=== PATIENT | female | born 1955 | race Caucasian/White ===

== ENCOUNTER 2017-02-11 13:39 | Day surgery (SDC) | payer OTHER ==
[2017-02-07 16:39] VITALS: BMI 29.2
[~2017-02-11 13:39] MED LIST: BETAMET ACET/BETAMET NA PH 30 MG/5 ML VIAL IJ ONE; BUPIVACAINE HCL/PF 0.25% (2.5MG/ML) 10 ML VIAL IJ ONE; BUPIVACAINE HCL/PF 0.5% (5MG/ML) 10 ML VIAL IJ ONE; IOHEXOL 180 MG/1 ML ML IJ ONE; LIDOCAINE HCL 1%, 10 MG/ML (50 mL VIAL) IJ ONE
[2017-02-11 14:27] VITALS: TEMP 98.5
[2017-02-11] MEDS ORDERED: LIDOCAINE HCL 1%, 10 MG/ML (20ML VIAL) ONE (15:30)
[2017-02-11] MEDS ORDERED: PROPOFOL 20 ML ONE (15:35)
[2017-02-11 17:31] VITALS: BP 120/64; PULSE 77
--- NOTE | 2017-02-26 13:36 | OP ---
DATE OF OPERATION: 02/11/2017 PREOPERATIVE DIAGNOSIS: Low back pain with lumbar radiculopathy on the left side. POSTOPERATIVE DIAGNOSIS: Low back pain with lumbar radiculopathy on the left side. PROCEDURE: Posterior lumbar epidural steroid injection at the L4-L5 on the left side, interlaminar approach. ANESTHESIA: Local and MAC. ANESTHESIOLOGIST: DESCRIPTION OF PROCEDURE: I discussed with her about risks, benefits, and alternative treatments. Patient understood, agreed, and signed the written consent. The patient was placed in the prone position. Head, neck, abdomen supported with the pillows. Lumbosacral area was prepped and draped with Betadine x3 and alcohol x3. Under fluoroscopy, vertebra was identified. At the L4-L5 level on the left side, 3 mL of 1% lidocaine was infiltrated. A 20-gauge 3-1/2-inch Tuohy needle was used to approach the epidural space with [id number] technique on intermittent fluoroscopy AP and oblique view. After negative aspiration, 2 mL of Omnipaque 180 was injected to see the flow of dye into epidural space. There was no CSF uptake or venous uptake. A solution containing 2.5 mL Celestone mixed with 1.5 mL of 0.25% Marcaine preservative free total of 4 mL was injected at this level after negative aspiration. While the needle was withdrawn, 1 mL of 1% lidocaine was infiltrated. The patient tolerated the procedure well. There was no immediate complication. Betadine was wiped off. A sterile bandage was placed. The patient was transferred to the recovery room and discharged as per ASU criteria. The patient was told to apply ice. If any problem, call me or report to ER. A follow up appointment was given. OSEI HANKS M.D. [id number]
== END 2017-02-11 17:35 | disposition home or self-care (01) ==
LOC: JOR 13:39 → JASU-SURG 13:39
PROVIDERS: ATTEND Physical Medicine & Rehabilitation
PROC: 3E0S33Z Introduction of Anti-inflammatory into Epidural Space, Percutaneous Approach (ICD-10-PCS; 2017-02-11)
PROC: B01BZZZ Fluoroscopy of Spinal Cord (ICD-10-PCS; 2017-02-11)
PROC: 3E0S3BZ Introduction of Anesthetic Agent into Epidural Space, Percutaneous Approach (ICD-10-PCS; principal; 2017-02-11 15:00)
DX: M54.16 Radiculopathy, lumbar region (principal)
CPT/HCPCS: 76000-TC

== ENCOUNTER 2018-02-13 07:45 | Emergency (ER) | payer OTHER ==
[2018-02-13 07:53] VITALS: BP 124/93; PULSE 107; TEMP 98.6; BMI 34.7
[2018-02-13] MEDS ORDERED: LORATADINE 10 MG TABLET ONE (08:43)
[2018-02-13] MEDS ORDERED: predniSONE 20 MG TABLET (UD) ONE (08:43)
[2018-02-13] MEDS ORDERED: LORATADINE 10 MG TABLET PO ONE (09:11)
[2018-02-13] MEDS ORDERED: predniSONE 20 MG TABLET (UD) PO ONE (09:11)
--- NOTE | 2018-02-13 09:16 | PDOC ---
History of Present Illness - General Chief Complaint: Allergic Reaction Stated Complaint: ALLERGIC REACTION Time Seen by Provider: 02/13/18 09:11 History Source: Patient - History of Present Illness Timing/Duration: reports: this morning Severity: Yes: moderate Location: reports: extremities Past History - Past Medical History Allergies/Adverse Reactions: Allergies Allergy/AdvReac Type Severity Reaction Status Date / Time No Known Allergies Allergy Verified 02/13/18 07:47 Home Medications: Ambulatory Orders Metformin HCl [Glucophage] 1,000 mg PO BID 09/30/11 Aspirin Coated [Ecotrin -] 81 mg PO DAILY 02/07/17 Atorvastatin Ca [Lipitor] 40 mg PO HS 02/07/17 Cyclobenzaprine HCl [Flexeril 10 mg] 10 mg PO HS 02/07/17 Furosemide [Lasix] 40 mg PO UTDICT 02/07/17 Gabapentin 300 mg PO HS 02/07/17 Insulin (Levemir) [Levemir Flexpen -] 28 units SQ BID 02/07/17 Insulin Lispro [Humalog] 100 unit SQ ACHS 02/07/17 Losartan Potassium 25 mg PO DAILY 02/07/17 Metoprolol Tartrate 75 mg PO BID 02/07/17 Oxycodone HCl/Acetaminophen [Percocet 5-325 mg Tablet] 1 tab PO PRN PRN Potassium Chloride [Klor-Con 10] 10 meq PO UTDICT 02/07/17 EPINEPHrine (EPI-PEN 0.3MG) [Epipen 0.3MG -] 0.3 mg IM ASDIR #1 pens 02/13/18 Famotidine [Pepcid] 20 mg PO DAILY #7 tablet 02/13/18 predniSONE [Deltasone -] 40 mg PO DAILY #8 tablet 02/13/18 Anemia: No Asthma: No Cancer: Yes (s/p bilateral breast cancer) Cardiac Disorders: Yes (BYPASS SX 2014) CVA: No COPD: No CHF: No DVT: No Dementia: No Diabetes: Yes (2008) GI Disorders: No Disorders: No HTN: No Hypercholesterolemia: Yes Liver Disease: No Seizures: No Thyroid Disease: No Other medical history: back problems - Surgical History Abdominal Surgery: Yes Appendectomy: No Cardiac Surgery: Yes (BYPASS 2014) Cholecystectomy: No Lung Surgery: No Neurologic Surgery: No Orthopedic Surgery: Yes (LT KNEE REPLACEMENT-ARTHROSCOPIC SX FOR SCAR TISSUE) - Suicide/Smoking/Psychosocial Hx Smoking History: Former smoker Have you smoked in the past 12 months: No Number of Cigarettes Smoked Daily: 4 If you are a former smoker, when did you quit?: 2014 Information on smoking cessation initiated: No Hx Alcohol Use: No Drug/Substance Use Hx: No Substance Use Type: None Hx Substance Use Treatment: No Review of Systems - Review of Systems Constitutional: No: Chills, Fever HEENTM: No: Throat Pain, Throat Swelling Respiratory: No: Shortness of Breath, Stridor Integumentary: Yes: Pruritus, Rash *Physical Exam - Vital Signs Last Vital Signs Temp Pulse Resp BP Pulse Ox 98.6 F 107 H 20 124/93 100 02/13/18 07:49 02/13/18 07:49 02/13/18 07:49 02/13/18 07:49 02/13/18 07:49 - Physical Exam General Appearance: Yes: Appropriately Dressed, Mild Distress HEENT: positive: Normal Voice, Pharynx Normal. negative: Muffled/Hoarse voice Neck: positive: Supple. negative: Stridor Respiratory/Chest: positive: Lungs Clear, Normal Breath Sounds. negative: Respiratory Distress Cardiovascular: positive: Regular Rate, S1, S2 Integumentary: positive: Dry, Warm, Rash (hives to neck, trunk and lower extremities) Neurologic: positive: Fully Oriented, Alert, Normal Mood/Affect Medical Decision Making - Medical Decision Making 02/13/18 09:13 62-year-old female, history of insulin-dependent diabetic, CABG, status post recent back surgery here with sudden onset generalized itching that started about 3 AM today. Patient states she also noticed rash to neck, trunk and lower extremities. Patient denies any inciting factors and no known drug or food allergies. No recent travel or sick contacts. Patient states she took 25 mg Benadryl this a.m. with no improvement. No sob, tongue swelling or voice changes. No history of similar episode. No history of liver disease See exam Hives Wyatt very uncomfortable in ED w/ scant hives throughout body -IM benadryl -prednisone -reassess 02/13/18 09:56 Pt reports mild improvement in symptoms. Offered further observation in ED but states she would rather go home at this time. Lungs remain clear w/ no angioedema. Rpt HR 86. Strict return precaution given *DC/Admit/Observation/Transfer Diagnosis at time of Disposition: Hives - Discharge Dispostion Disposition: HOME Condition at time of disposition: Improved - Prescriptions Prescriptions: EPINEPHrine (EPI-PEN 0.3MG) [Epipen 0.3MG -] 0.3 mg IM ASDIR #1 pens Famotidine [Pepcid] 20 mg PO DAILY #7 tablet predniSONE [Deltasone -] 40 mg PO DAILY #8 tablet - Referrals Referrals: Makenna Rogers MD [Primary Care Provider] - - Patient Instructions Printed Discharge Instructions: DI for General Allergic Reactions Additional Instructions: Take medications as directed and return for worsening of symptoms - Post Discharge Activity
== END 2018-02-13 10:05 | disposition home or self-care (01) ==
LOC: JERFT 07:45
PROC: 3E023GC Introduction of Other Therapeutic Substance into Muscle, Percutaneous Approach (ICD-10-PCS; principal; 2018-02-13)
DX: L50.9 Urticaria, unspecified (principal); E11.9 Type 2 diabetes mellitus without complications; Z95.1 Presence of aortocoronary bypass graft; Z79.4 Long term (current) use of insulin
CPT/HCPCS: 99281-25

== ENCOUNTER 2018-02-13 20:37 | Emergency (ER) | payer OTHER ==
[2018-02-13 20:45] VITALS: BMI 34.7
[2018-02-13] MEDS ORDERED: methylPREDNISolone NA SUCC 40 MG/1 ML VIAL IVPUSH ONE (21:31)
[2018-02-13] MEDS ORDERED: FAMOTIDINE 20 MG/50 ML IVPB 20 MG/50 ML MG IVPB ONE ×2 (21:31→21:47)
--- NOTE | 2018-02-13 21:32 | PDOC ---
History of Present Illness - General Chief Complaint: Allergic Reaction Stated Complaint: RASH Time Seen by Provider: 02/13/18 21:13 History Source: Patient, Old Records Exam Limitations: No Limitations - History of Present Illness Initial Comments: 02/13/18 22:11 This 62-year-old woman with past medical history of insulin-dependent diabetes, CABG, multiple orthopedic surgeries including back surgery 3 weeks ago presents with generalized rash to her neck, trunk and lower extremities. Patient denies any change in soaps, shampoos, fabric softeners, shampoos, conditioners, foods or medications. Patient was seen and evaluated here in this emergency department earlier today received IM Benadryl and prednisone with improvement in symptoms. Patient states she would rather go home as opposed observation at that time. Patient states that approximately 1:00 this afternoon her symptoms resolved for which she took more Benadryl and Pepcid at that time. Patient states minimal relief of symptoms after repeat dosing. Patient contacted her primary doctor who recommended she come to the emergency department for IV steroids. Past History - Past Medical History Allergies/Adverse Reactions: Allergies Allergy/AdvReac Type Severity Reaction Status Date / Time No Known Allergies Allergy Verified 02/13/18 07:47 Home Medications: Ambulatory Orders Metformin HCl [Glucophage] 1,000 mg PO BID 09/30/11 Aspirin Coated [Ecotrin -] 81 mg PO DAILY 02/07/17 Atorvastatin Ca [Lipitor] 40 mg PO HS 02/07/17 Cyclobenzaprine HCl [Flexeril 10 mg] 10 mg PO HS 02/07/17 Furosemide [Lasix] 40 mg PO UTDICT 02/07/17 Gabapentin 300 mg PO HS 02/07/17 Insulin (Levemir) [Levemir Flexpen -] 28 units SQ BID 02/07/17 Insulin Lispro [Humalog] 100 unit SQ ACHS 02/07/17 Losartan Potassium 25 mg PO DAILY 02/07/17 Metoprolol Tartrate 75 mg PO BID 02/07/17 Oxycodone HCl/Acetaminophen [Percocet 5-325 mg Tablet] 1 tab PO PRN PRN Potassium Chloride [Klor-Con 10] 10 meq PO UTDICT 02/07/17 EPINEPHrine (EPI-PEN 0.3MG) [Epipen 0.3MG -] 0.3 mg IM ASDIR #1 pens 02/13/18 Famotidine [Pepcid] 20 mg PO DAILY #7 tablet 02/13/18 predniSONE [Deltasone -] 40 mg PO DAILY #8 tablet 02/13/18 hydrOXYzine HCL [Atarax -] 25 mg PO QID #60 tablet 02/14/18 Anemia: No Asthma: No Cancer: Yes (s/p bilateral breast cancer) Cardiac Disorders: Yes (BYPASS SX 2014) CVA: No COPD: No CHF: No DVT: No Dementia: No Diabetes: Yes (2008) GI Disorders: No Disorders: No HTN: No Hypercholesterolemia: Yes Liver Disease: No Seizures: No Thyroid Disease: No - Surgical History Abdominal Surgery: Yes Appendectomy: No Cardiac Surgery: Yes (BYPASS 2014) Cholecystectomy: No Lung Surgery: No Neurologic Surgery: No Orthopedic Surgery: Yes (LT KNEE REPLACEMENT-ARTHROSCOPIC SX FOR SCAR TISSUE) - Suicide/Smoking/Psychosocial Hx Smoking History: Former smoker Have you smoked in the past 12 months: No Number of Cigarettes Smoked Daily: 4 If you are a former smoker, when did you quit?: 2014 Information on smoking cessation initiated: No Hx Alcohol Use: No Drug/Substance Use Hx: No Substance Use Type: None Hx Substance Use Treatment: No Review of Systems - Review of Systems Able to Perform ROS?: Yes Is the patient limited Vietnamese proficient: No Constitutional: No: Symptoms Reported HEENTM: No: Symptoms Reported Respiratory: No: Symptoms reported Cardiac (ROS): No: Symptoms Reported ABD/GI: No: Symptoms Reported : No: Symptoms Reported Musculoskeletal: No: Symptoms Reported Integumentary: Yes: See HPI Neurological: No: Symptoms reported *Physical Exam - Vital Signs Last Vital Signs Temp Pulse Resp BP Pulse Ox 98.8 F 101 H 18 151/68 98 02/13/18 20:42 02/13/18 20:42 02/13/18 20:42 02/13/18 20:42 02/13/18 20:42 - Physical Exam General Appearance: Yes: Appropriately Dressed. No: Apparent Distress Neck: positive: Trachea midline, Supple. negative: Stridor Respiratory/Chest: positive: Lungs Clear, Normal Breath Sounds. negative: Respiratory Distress, Accessory Muscle Use Cardiovascular: positive: Regular Rhythm, Regular Rate. negative: Murmur Integumentary: positive: Rash (Scattered pink maculopapular pruritic rash to neck, chest and lower extremities) Medical Decision Making - Medical Decision Making 02/13/18 22:47 A/P: 62-year-old woman with multiple medical problems with rash to her body since 3 AM Oropharynx clear without edema, erythema or exudate Uvula midline No stridor present Lungs clear to auscultation bilaterally patchy pruritic erythematous rash noted to chest, back, neck and upper extremities Patient has been taking prescribed medication with minimal relief of symptoms Solu-Medrol, Pepcid, Atarax, reassess 02/13/18 23:18 Patient continues to itch despite IV steroids, IV Pepcid and Atarax. I will add triamcinolone cream at this time. 02/14/18 00:57 Patient is free of pruritus and rash is starting to clear up at this time. Patient is requesting discharge. I'll prescribe hydroxyzine for the patient to continue taking until she can be evaluated by ENT to determine etiology. *DC/Admit/Observation/Transfer Diagnosis at time of Disposition: Hives - Discharge Dispostion Disposition: HOME Condition at time of disposition: Stable Decision to Admit order: No - Prescriptions Prescriptions: hydrOXYzine HCL [Atarax -] 25 mg PO QID #60 tablet - Referrals Referrals: Julisa Garsia [Primary Care Provider] - Jaime Saldivar MD [Staff Physician] - Dejon Alejandro [Non Staff, Medical] - - Patient Instructions Additional Instructions: Take hydroxyzine 25 mg every 6 hours as needed for itching. Use hydrocortisone cream to help alleviate rash. Apply oatmeal based lotions to skin to help control itching and rash Continue taking all previous prescribed medications you have been given a referral to an ENT specialist for allergen testing. Please make an appointment as soon as possible to determine underlying cause of itching and rash. Return to emergency department for any concerns. Thank you very much for choosing us to provide for emergent health care needs. - Post Discharge Activity
[2018-02-13] MEDS ORDERED: hydrOXYzine PAMOATE 25 MG CAPSULE (FP) PO ONE (21:36)
[2018-02-13] MEDS ORDERED: methylPREDNISolone NA SUCC 40 MG/1 ML VIAL ONE (21:47)
[2018-02-13] MEDS ORDERED: HYDROCORTISONE 1% TOPICAL OINT 30 GM TUBE TP ONE (23:19)
[2018-02-14] MEDS ORDERED: TRIAMCINOLONE ACET 0.1% OINT 15 GM TUBE TP ONE
[2018-02-14 02:15] VITALS: BP 132/80; PULSE 78; TEMP 98
== END 2018-02-14 01:28 | disposition home or self-care (01) ==
LOC: JER 20:37
PROC: 3E033GC Introduction of Other Therapeutic Substance into Peripheral Vein, Percutaneous Approach (ICD-10-PCS; principal; 2018-02-13)
PROC: 3E0333Z Introduction of Anti-inflammatory into Peripheral Vein, Percutaneous Approach (ICD-10-PCS; 2018-02-13)
DX: L50.9 Urticaria, unspecified (principal); E11.9 Type 2 diabetes mellitus without complications; Z79.4 Long term (current) use of insulin; Z79.84 Long term (current) use of oral hypoglycemic drugs; Z95.1 Presence of aortocoronary bypass graft; Z85.3 Personal history of malignant neoplasm of breast; Z87.891 Personal history of nicotine dependence
CPT/HCPCS: 99281-25

== ENCOUNTER 2018-06-01 16:26 | Emergency (ER) | payer OTHER ==
[2018-06-01 16:31] VITALS: BP 132/56; PULSE 87; TEMP 97.8; BMI 32.9
--- NOTE | 2018-06-01 16:31 | PDOC ---
History of Present Illness <PhanJanet Derrickoliver - Last Filed: 06/01/18 18:42> - History of Present Illness Initial Comments: 06/01/18 18:48 The patient is a 62 year old female with a history of DM, HLD who presents for evaluation of left eye pain. The patient reports that she was spraying bug spray when it splashed and got into her left eye. She states that she experienced a burning sensation to the left eye with associated blurry vision. She states that she irrigated her eye for 2 hours prior to presentation to the ED for further evaluation. She otherwise denies fevers, chills, SOB, chest pain , nausea, vomiting, abdominal pain, or changes with urination or bowel movements. <Isidro Jimenez - Last Filed: 06/01/18 19:00> - General Chief Complaint: Eye Problem Stated Complaint: bug spray in eye Time Seen by Provider: 06/01/18 16:31 Past History <Janet Phan Daniel - Last Filed: 06/01/18 18:42> - Past Medical History Anemia: No Asthma: No Cancer: Yes (s/p bilateral breast cancer) Cardiac Disorders: Yes (BYPASS SX 2014) CVA: No COPD: No CHF: No DVT: No Dementia: No Diabetes: Yes (2008) GI Disorders: No Disorders: No HTN: No Hypercholesterolemia: Yes Liver Disease: No Seizures: No Thyroid Disease: No - Surgical History Abdominal Surgery: Yes Appendectomy: No Cardiac Surgery: Yes (BYPASS 2014) Cholecystectomy: No Lung Surgery: No Neurologic Surgery: No Orthopedic Surgery: Yes (LT KNEE REPLACEMENT-ARTHROSCOPIC SX FOR SCAR TISSUE) - Suicide/Smoking/Psychosocial Hx Smoking History: Former smoker Have you smoked in the past 12 months: No Number of Cigarettes Smoked Daily: 4 If you are a former smoker, when did you quit?: 2014 Information on smoking cessation initiated: No Hx Alcohol Use: No Drug/Substance Use Hx: No Substance Use Type: None Hx Substance Use Treatment: No <BarbaraIsidro - Last Filed: 06/01/18 19:00> - Past Medical History Allergies/Adverse Reactions: Allergies Allergy/AdvReac Type Severity Reaction Status Date / Time No Known Allergies Allergy Verified 06/01/18 16:28 Home Medications: Ambulatory Orders Metformin HCl [Glucophage] 1,000 mg PO BID 09/30/11 Aspirin Coated [Ecotrin -] 81 mg PO DAILY 02/07/17 Atorvastatin Ca [Lipitor] 40 mg PO HS 02/07/17 Cyclobenzaprine HCl [Flexeril 10 mg] 10 mg PO HS 02/07/17 Furosemide [Lasix] 40 mg PO UTDICT 02/07/17 Gabapentin 300 mg PO HS 02/07/17 Insulin (Levemir) [Levemir Flexpen -] 28 units SQ BID 02/07/17 Insulin Lispro [Humalog] 100 unit SQ ACHS 02/07/17 Losartan Potassium 25 mg PO DAILY 02/07/17 Metoprolol Tartrate 75 mg PO BID 02/07/17 Oxycodone HCl/Acetaminophen [Percocet 5-325 mg Tablet] 1 tab PO PRN PRN Potassium Chloride [Klor-Con 10] 10 meq PO UTDICT 02/07/17 EPINEPHrine (EPI-PEN 0.3MG) [Epipen 0.3MG -] 0.3 mg IM ASDIR #1 pens 02/13/18 Famotidine [Pepcid] 20 mg PO DAILY #7 tablet 02/13/18 predniSONE [Deltasone -] 40 mg PO DAILY #8 tablet 02/13/18 hydrOXYzine HCL [Atarax -] 25 mg PO QID #60 tablet 02/14/18 Ofloxacin 0.3% Ophth Soln [Ocuflox -] 2 drop OP Q6H #10 ml 06/01/18 Review of Systems - Review of Systems Comments:: 06/01/18 18:54 Constitutional: No fevers, chills, fatigue, malaise HEENT: Left eye pain. Blurry vision. No Rhinorrhea, nasal congestion, Cardiovascular: No chest pain, syncope, palpitations, lightheadedness Respiratory: No Cough, SOB, Hemoptysis, Gastrointestinal: No Abdominal pain, Nausea, Vomiting, Constipation, Diarrhea, Melena Genitourinary: No Dysuria, Frequency, Urgency, Hesitancy, Hematuria, Flank pain Musculoskeletal: No Myalgia, arthralgia Skin: No rashes, itching, bruising, pallor Neurologic: No Headache, Dizziness, Numbness, Weakness, or Tingling Psychiatric: No Hallucinations. No SI or HI <Isidro Jimenez - Last Filed: 06/01/18 19:00> *Physical Exam - Vital Signs Last Vital Signs Temp Pulse Resp BP Pulse Ox 97.8 F 87 18 132/56 97 06/01/18 16:28 06/01/18 16:28 06/01/18 16:28 06/01/18 16:28 06/01/18 16:28 <Janet Phan - Last Filed: 06/01/18 18:42> - Vital Signs Last Vital Signs Temp Pulse Resp BP Pulse Ox 97.8 F 87 18 132/56 97 06/01/18 16:28 06/01/18 16:28 06/01/18 16:28 06/01/18 16:28 06/01/18 16:28 - Physical Exam Comments: 06/01/18 18:54 General Appearance: Nourished. No Apparent Distress HEENT: EOMI, LAMONT. Visual acuity 20/70 left eye and 20/40 right eye. Left eye abrasion noted on fluorescien stain. No Pharyngeal Erythema, Tonsillar Exudate , Tonsillar Erythema Neck: No Cervical Lymphadenopathy Respiratory/Chest: Lungs Clear, Normal Breath Sounds. No Crackles, Rales, Rhonchi, Wheezing Cardiovascular: Regular Rhythm, Regular Rate. No Murmur, Gallops, Rubs Gastrointestinal/Abdominal: Normal Bowel Sounds, Soft. No Guarding, Rebound, Tenderness Musculoskeletal: No CVA Tenderness Extremity: Normal Capillary Refill Integumentary: Normal Color, Dry, Warm Neurologic: Fully Oriented, Alert, Normal Mood/Affect, Normal Response, <BarbaraIsidro - Last Filed: 06/01/18 19:00> ED Treatment Course - Medications Given in the ED: ED Medications Discontinued Medications Generic Name Dose Route Start Last Admin Trade Name Krishnaq PRN Reason Stop Dose Admin Fluorescein Sodium 2 ea 06/01/18 17:44 06/01/18 17:54 Fluorets - OD 06/01/18 17:45 2 ea ONCE ONE Administration Tetracaine HCl 1 drop 06/01/18 17:37 06/01/18 17:54 Tetravisc 0.5% Eye Drops - OD 06/01/18 17:38 1 drop ONCE ONE Administration <Janet Phan - Last Filed: 06/01/18 18:42> Medical Decision Making - Medical Decision Making 06/01/18 18:55 The patient is a 62 year old female with a history of DM, HLD who presents for evaluation of left eye pain. Given the patient's history and physical exam, it is likely the patient's symptoms are due to corneal abrasion from eye scratching and eye irritation from the irritant of the bug spray. The patient' s eye was irrigated with 500ccs of normal saline after treatment with tetracaine. We are comfortable discharging the patient home on ofloxacin with ophthalmology follow up. We discussed the plan and strict return precautions with the patient who voiced understanding and is agreeable with the plan. <Isidro Jimenez - Last Filed: 06/01/18 19:00> *DC/Admit/Observation/Transfer - Discharge Dispostion Decision to Admit order: No <EmilieJanetnohemi Sanchez - Last Filed: 06/01/18 18:42> <Isidro Jimenez - Last Filed: 06/01/18 19:00> Diagnosis at time of Disposition: Corneal abrasion, left, Irritation of left eye - Discharge Dispostion Disposition: HOME Condition at time of disposition: Stable - Prescriptions Prescriptions: Ofloxacin 0.3% Ophth Soln [Ocuflox -] 2 drop OP Q6H #10 ml - Referrals Referrals: Nicolás Mazariegos MD [Staff Physician] - - Patient Instructions Printed Discharge Instructions: DI for Corneal Abrasion, DI for Chemical Eye Burn Additional Instructions: follow with eye doctor, referral given for Dr Mazariegos you are to use ofloxacin drops four times a day in the left eye. monitor for worsening symptoms such as blurry vision, vision loss, red eye, signs of infection. keep area covered, clean and dry. keep eye covered when you go to sleep follow with eye doctor in 1-2 days, call for appointment. you have a chemical eye burn vs corneal abrasion affecting your eye.
--- NOTE | 2018-06-01 17:07 | PDOC ---
Attending Attestation - Resident Resident Name: Isidro Jimenez - ED Attending Attestation I have performed the following: I have examined & evaluated the patient, The case was reviewed & discussed with the resident, I agree w/resident's findings & plan - HPI HPI: 06/01/18 19:42 62 YOF with DM, HTN, HLD, CAD s/p CABG presenting with left eye irritation s/p getting wasp spray into eye. wearing glasses at the time, +irritation around the left eye at the time. no red eye. feeling "pressure in the eye." no loss of vision. no drainage. she did copiously irrigate under water prior to coming to the ED. tdap up to date. 06/01/18 19:42 - Physicial Exam PE: 06/01/18 18:31 General: Well appearing, awake and alert, NAD. HEENT: NCAT, PERRL, EOMI, clear conjunctiva, anicteric, moist mucus membranes, clear oropharynx, no oral lesions.. no periorbital swelling or skin changes visual acuity 20/70 right, 20/40 on left. wood's lamp with fluroescein staining with 5 to 7 o'clock uptake, no Juliette's. Neuro: alert, oriented appropriately; no focal neurologic deficits. SILT, 5/5 distal and prox strength in all extrem. speech clear. Skin: warm and well perfused, cap refill <2 sec, normal color - Medical Decision Making 06/01/18 18:32 62 YOF with DM, HTN, HLD, CAD s/p CABG presenting with left eye irritation s/p getting wasp spray into eye. wearing glasses at the time, +irritation around the left eye at the time. no red eye. feeling "pressure in the eye." no loss of vision. no drainage. she did copiously irrigate under water prior to coming to the ED. vitals wnl. visual acuity preserved. uptake in left eye c/w corneal abrasion. ofloxacin drops given she is diabetic, pseudomonas risk igor lens irrigation with NSS which she tolerated. tdap up to date. ophtho followup in 1-3 days, ofloxacin drops QID for corneal abrasion and eye irritation/. return precautions discussed. eye precautions discussed. Dx. chemical eye burn, corneal abrasion 06/01/18 19:41 06/01/18 19:42
[2018-06-01] MEDS ORDERED: TETRACAINE 0.5% HCL 0.6ML DROPPER.BOTTLE OD ONE (17:37)
[2018-06-01] MEDS ORDERED: TETRACAINE 0.5% OPHTH SOLN 2 ML BOTTLE ONE (17:43)
[2018-06-01] MEDS ORDERED: FLUORESCEIN NA 1 EA STRIP ONE (17:43)
[2018-06-01] MEDS ORDERED: FLUORESCEIN NA 1 EA STRIP OD ONE (17:44)
== END 2018-06-01 18:54 | disposition home or self-care (01) ==
LOC: FER 16:26
DX: Z77.018 Contact with and (suspected) exposure to other hazardous metals (principal); S05.02XA Injury of conjunctiva and corneal abrasion without foreign body, left eye, initial encounter; Y29.XXXA Contact with blunt object, undetermined intent, initial encounter; Y93.89 Activity, other specified; Y92.89 Other specified places as the place of occurrence of the external cause; E11.9 Type 2 diabetes mellitus without complications; E78.5 Hyperlipidemia, unspecified
CPT/HCPCS: 99282-25

== ENCOUNTER 2021-12-11 01:18 | Emergency (ER) | payer OTHER ==
[2021-12-11 01:30] VITALS: BP 126/101; PULSE 81; TEMP 98; BMI 32.9
== END 2021-12-11 02:30 | disposition home or self-care (01) ==
LOC: FER 01:18
DX: S93.601A Unspecified sprain of right foot, initial encounter (principal); W01.0XXA Fall on same level from slipping, tripping and stumbling without subsequent striking against object, initial encounter
CPT/HCPCS: 73610-TC-LT-FY; 73630-TC-LT; 99283-25

== ENCOUNTER 2024-03-14 00:21 | Emergency (ER) | payer OTHER ==
[2024-03-14 00:41] VITALS: BP 115/75; BMI 33.0
== END 2024-03-14 01:06 | disposition home or self-care (01) ==
LOC: FER 00:21
DX: S61.204A Unspecified open wound of right ring finger without damage to nail, initial encounter (principal); W26.8XXA Contact with other sharp object(s), not elsewhere classified, initial encounter; Y93.89 Activity, other specified
CPT/HCPCS: 99282-25